=== PATIENT | male | born 1960 | race African-American/Black ===

== ENCOUNTER 2020-03-13 10:26 | Inpatient (IN) | payer MEDICARE, OTHER ==
[2020-03-13] MEDS ORDERED: levETIRAcetam IV 500 MG in SALINE 1 100ML.BAG IVPB STA (10:42)
[2020-03-13] MEDS ORDERED: LORazepam 2 MG/ML INJ IV STA (10:42)
[2020-03-13] MEDS ORDERED: SODIUM CHLORIDE 0.9% 1,000 ML IV STA (10:42)
[2020-03-13] MEDS ORDERED: levETIRAcetam IV 500 MG in SODIUM CHLORIDE 0.9% 100 ML IVPB STA (10:44)
--- NOTE | 2020-03-13 11:35 | ED ---
General Adult HPI - General Chief complaint: Seizure Stated complaint: Seizure Time Seen by Provider: 03/13/20 10:37 Source: patient, EMS, RN notes reviewed Mode of arrival: EMS Limitations: no limitations - History of Present Illness Initial comments: 59-year-old male with a past medical history of seizure disorder, chronic alcoholism presents to the emergency room for a chief complaint of seizure disorder. Patient has had 3 seizures today. Patient is post ictal currently. A and O 2. Patient does have a history of seizures and does take Keppra. Questionable whether he takes a second seizure medication. Patient is unsure what this medication is and his family does not know. We are unable to get a hold of the pharmacy and doctor as it is a holiday. No history of trauma today.Patient has no other complaints at this time including shortness of breath, chest pain, abdominal pain, nausea or vomiting, headache, or visual changes. - Related Data Home Medications Medication Instructions Recorded Confirmed Unknown Blood Pressure 1 tab PO DAILY 03/13/20 03/13/20 levETIRAcetam [Keppra] 750 mg PO BID 03/13/20 03/13/20 Allergies Allergy/AdvReac Type Severity Reaction Status Date / Time No Known Allergies Allergy Verified 03/13/20 10:57 Review of Systems ROS Statement: Those systems with pertinent positive or pertinent negative responses have been documented in the HPI. ROS Other: All systems not noted in ROS Statement are negative. Past Medical History Past Medical History: Seizure Disorder History of Any Multi-Drug Resistant Organisms: None Reported Additional Past Surgical History / Comment(s): CRAINUM SURICAL REPAIR Smoking Status: Current every day smoker Past Alcohol Use History: Abuse, Daily Past Drug Use History: Marijuana General Exam Limitations: no limitations General appearance: alert, in no apparent distress Head exam: Present: atraumatic, normocephalic, normal inspection Eye exam: Present: normal appearance, PERRL, EOMI. Absent: scleral icterus, conjunctival injection, periorbital swelling ENT exam: Present: normal exam, mucous membranes moist Neck exam: Present: normal inspection, full ROM. Absent: tenderness, meningismus, lymphadenopathy Respiratory exam: Present: normal lung sounds bilaterally. Absent: respiratory distress, wheezes, rales, rhonchi, stridor Cardiovascular Exam: Present: regular rate, normal rhythm, normal heart sounds. Absent: systolic murmur, diastolic murmur, rubs, gallop, clicks GI/Abdominal exam: Present: soft, normal bowel sounds. Absent: distended, tenderness, guarding, rebound, rigid Neurological exam: Present: alert, other Course Vital Signs 03/13/20 10:28 Temperature 97.7 F Pulse Rate 86 Respiratory 18 Rate Blood Pressure 102/84 O2 Sat by Pulse 97 Oximetry EKG Findings - EKG Comments: EKG Findings:: Normal sinus rhythm, ventricular rate 62, AK interval 156, QTc 448 Medical Decision Making - Medical Decision Making Vitals are stable. Patient apparently had 3 seizures prior to arrival. He was given Ativan and Keppra on arrival. Patient was post ictal. Patient's alcohol was found to be 310 and he was started on C1 protocol. CBC CMP unremarkable. Magnesium 2.1. Potassium is slightly hemolyzed. Patient did not have any additional seizures in the emergency room. At this time patient will be a dmitted for acute alcohol intoxication, possible DTs, uncontrolled seizures. Of note patient is on another unknown seizure medication which he has not been taking. Neurology will be consulted. - Lab Data Result diagrams: 03/13/20 11:45 03/13/20 11:45 Lab Results 03/13/20 03/13/20 Range/Units 11:45 11:45 WBC 7.6 (3.8-10.6) k/uL RBC 5.46 (4.30-5.90) m/uL Hgb 17.0 (13.0-17.5) gm/dL Hct 51.1 (39.0-53.0) % MCV 93.5 (80.0-100.0) fL MCH 31.0 (25.0-35.0) pg MCHC 33.2 (31.0-37.0) g/dL RDW 15.2 (11.5-15.5) % Plt Count 241 (150-450) k/uL MPV 6.4 Neutrophils % 68 % Lymphocytes % 22 % Monocytes % 6 % Eosinophils % 2 % Basophils % 1 % Neutrophils # 5.2 (1.3-7.7) k/uL Lymphocytes # 1.7 (1.0-4.8) k/uL Monocytes # 0.5 (0-1.0) k/uL Eosinophils # 0.1 (0-0.7) k/uL Basophils # 0.1 (0-0.2) k/uL Sodium 144 (137-145) mmol/L Potassium 5.2 H (3.5-5.1) mmol/L Chloride 111 H (98-107) mmol/L Carbon Dioxide 19 L (22-30) mmol/L Anion Gap 14 mmol/L BUN 10 (9-20) mg/dL Creatinine 0.88 (0.66-1.25) mg/dL Est GFR (CKD-EPI)AfAm >90 (>60 ml/min/1.73 sqM) Est GFR (CKD-EPI)NonAf >90 (>60 ml/min/1.73 sqM) Glucose 74 (74-99) mg/dL Calcium 8.7 (8.4-10.2) mg/dL Magnesium 2.1 (1.6-2.3) mg/dL Total Bilirubin 0.7 (0.2-1.3) mg/dL AST 54 (17-59) U/L ALT 28 (4-49) U/L Alkaline Phosphatase 79 (38-126) U/L Total Protein 7.7 (6.3-8.2) g/dL Albumin 4.3 (3.5-5.0) g/dL Serum Alcohol 310 H* mg/dL Disposition Clinical Impression: Intractable seizure disorder, Acute alcohol intoxication Disposition: ADMITTED IP TO THIS HOSP Is patient prescribed a controlled substance at d/c from ED?: No Referrals: None,Stated [Primary Care Provider] - 1-2 days Time of Disposition: 13:00
[2020-03-13 11:53] LABS: Basophils # (A) 0.1 k/uL (0-0.2); Basophils % (A) 1 %; Eosinophils # (A) 0.1 k/uL (0-0.7); Eosinophils % (A) 2 %; HCT 51.1 % (39.0-53.0); Lymphocytes # (A) 1.7 k/uL (1.0-4.8); Lymphocytes % (A) 22 %; MCHC 33.2 g/dL (31.0-37.0); MCV 93.5 fL (80.0-100.0); Mean Platelet Volume 6.4; Monocytes # (A) 0.5 k/uL (0-1.0); Monocytes % (A) 6 %; Neutrophils # (A) 5.2 k/uL (1.3-7.7); Neutrophils % (A) 68 %; Platelet Count 241 k/uL (150-450); RBC 5.46 m/uL (4.30-5.90); RDW 15.2 % (11.5-15.5); WBC 7.6 k/uL (3.8-10.6)
[2020-03-13 12:03] LABS: ALT 28 U/L (4-49); African American GFR (CKD) >90 (>60 ml/min/1.73 sqM); Albumin 4.3 g/dL (3.5-5.0); Anion Gap 14 mmol/L; Blood Urea Nitrogen 10 mg/dL (9-20); Calcium 8.7 mg/dL (8.4-10.2); Carbon Dioxide 19 mmol/L (22-30); Chloride 111 mmol/L (98-107); Glucose 74 mg/dL (74-99); Non-African American GFR(CKD) >90 (>60 ml/min/1.73 sqM); Sodium 144 mmol/L (137-145); Total Bilirubin 0.7 mg/dL (0.2-1.3); Total Protein 7.7 g/dL (6.3-8.2)
[2020-03-13 12:11] LABS: AST 54 U/L (17-59); Alcohol 310 mg/dL; Alkaline Phosphatase 79 U/L (38-126); Magnesium 2.1 mg/dL (1.6-2.3); Potassium 5.2 mmol/L (3.5-5.1)
[2020-03-13] MEDS ORDERED: LORazepam 2 MG/ML INJ IV PRN ×2 (12:26)
[2020-03-13] MEDS ORDERED: THIAMINE 100 MG/ML 2 ML VIAL IM STA (12:26)
[2020-03-13] MEDS ORDERED: NALOXONE 0.4 MG/ML 1 ML VIAL IV PRN (12:30)
[2020-03-13] MEDS: SODIUM CHLORIDE 0.9% 1,000 ML IV SCH ×2 (12:47→22:48)
--- NOTE | 2020-03-13 12:53 | CT ---
EXAMINATION TYPE: CT brain wo con DATE OF EXAM: 03/13/2020 COMPARISON: None available HISTORY: Seizure CT DLP: 1143.4 mGycm Automated exposure control for dose reduction was used. Helical imaging through the brain FINDINGS: There is focal encephalomalacia at the left parietal calvarium, craniotomy is present towards the con vexity and the overlying skull. Metallic densities are present at the level of the falx. There is no hemorrhage or hydrocephalus. Ex vacuo phenomenon is present of the posterior horn of the left lateral ventricle. Paranasal sinuses are well aerated, mastoid air cells are unremarkable. Orbits show symme tric appearance. Increased soft tissue density within the posterior scalp is noted of questionable ag e. Low-attenuation within the frontal lobes is noted, correlate for history of brain injury, contusio ns, soft tissue without densities suggesting calcifications are scattered within the scalp. IMPRESSION: NO ACUTE BRAIN ABNORMALITY IS EVIDENT. FINDINGS WITHIN THE SCALP MAY BE CHRONIC, COMPARISON WITH PRIO R IMAGING IS AVAILABLE MAY BE OF BENEFIT TO ASSESS FOR ANY INTERVAL CHANGES.
--- NOTE | 2020-03-13 17:24 | P.CNNES ---
History of Present Illness Consult date: 03/13/20 Requesting physician: Elia Hardin Reason for Consult: Uncontrolled seizures, seizure disorder History of Present Illness: Patient is a 59-year-old male came to the hospital today at 10:26 AM for recurrent seizure. Patient has history of seizure disorder, chronic alcoholism. Patient was post ictal on arrival. According to EMS flow sheet, when they arrived at the scene, patient was laying in bed. Family states he had 3 seizures within an hour. Each one lasted approximately less than a minute. Patient has history of seizure disorder. He has missed one of his medication. Patient was alert and oriented to self and time. But was still postictal. Patient's blood pressure at the scene was 133/95, pulse rate 89, respiration 12 saturation 97% and blood sugar 317. Vital signs on arrival blood pressure 102/84, pulse rate 86, temperature 97.7. CT head showed no acute brain abnormality is evident. There is focal encephalomalacia at the left parietal calvarium, craniotomy is present towards the convexity and the overlying scalp. Metallic densities are present at the level of [place]. There is no hemorrhage or hydrocephalus. Ex-vacuo phenomenon is present of the posterior horn of the left lateral ventricle. Low attenuation within the frontal lobe is noted, correlate for history of brain injury, cont usion, soft tissue without densities suggesting calcifications are scattered within the scalp. EKG shows normal sinus rhythm. Patient was given Ativan and Keppra in the ER. Patient's blood test shows normal CBC, sodium, potassium 5.2, normal liver and hepatic panel. Blood alcohol level 310. Patient tells me that he takes Keppra 1 pill twice a day and Dilantin 1 pill twice a day. He does not know the milligrams of each bills. Patient states that he has not had seizure for "a minute", which he probably refers to a long time. He states the last seizure was 6 months ago. He states that he has not been able to refill his medication therefore has missed medication for 4 days. Patient does take Keppra 750 mg twice a day as per electronic records here. Patient states he drinks 3-4 beers per day and a shot of vodka and flushes with water. He also smokes marijuana but denies any other drugs. Patient states that he follows up with a neurologist in [place]. Patient also tells me that he suffered from closed head injury about 5-7 years ago, when he was doing some yard work, climbed up the tree and then slid down, and fell head first. He required craniotomy. Past Medical History Past Medical History: Seizure Disorder History of Any Multi-Drug Resistant Organisms: None Reported Additional Past Surgical History / Comment(s): CRAINUM SURICAL REPAIR Smoking Status: Current every day smoker Past Alcohol Use History: Abuse, Daily Past Drug Use History: Marijuana - Past Family History Father History Unknown: Yes Medications and Allergies Home Medications Medication Instructions Recorded Confirmed Type Unknown Blood Pressure 1 tab PO DAILY 03/13/20 03/13/20 History levETIRAcetam [Keppra] 750 mg PO BID 03/13/20 03/13/20 History Allergies Allergy/AdvReac Type Severity Reaction Status Date / Time No Known Allergies Allergy Verified 03/13/20 10:57 Physical Examination - Vital Signs Vital Signs: Vital Signs Temp Pulse Resp BP Pulse Ox 03/13/20 12:56 63 18 108/68 100 03/13/20 10:28 97.7 F 86 18 102/84 97 Intake and Output 03/12/20 03/13/20 03/13/20 22:59 06:59 14:59 Other: Weight 74.843 kg On examination patient is a middle aged Afro[place]izen [place] male, in no acute distress. He has very slow mentation, prolonged latency time to answer questions, sometimes does not understand and requires repeated prompts. Likely from alcohol intoxication. Patient states it is February 2020 and that he is in [place] in [place]. He knows name of the current president Shruti, but does not recall name of the next president. Speech is clear with no dysarthria or aphasia. Slight slurring due to alcohol. Attention, concentration and fund of knowledge is limited. On cranial nerve exam. Pupils are round and reacting, visual godinez appears full. Extraocular muscles are intact. Face is symmetric and tongue protrudes the midline. Palatal elevation and sensation normal, hearing is sided decreased, shoulder shrug normal. Facial sensation normal. On muscle strength testing there is mild right pronator drift. The strength appea rs fairly normal in the arms and legs. He has some rotator cuff issues with ruptured right biceps tendon, it appears. Reflexes are 2+ in the left upper limb, 1 in the right upper limb. Patient has more brisk reflexes in the right lower limb about 3, and 2 on the left lower limb. Patient has sustained clonus on the right side. Sensory touch it appears slightly decreased on the right and patient neglects right side on double simultaneous stimulation. No obvious ataxia. Tone and bulk of muscles normal. Gait deferred. There is no obvious bruit, sinus audible, abdomen soft nontender, chest is clear. Peripheral pulses present. No peripheral edema. Results - Laboratory Findings CBC and BMP: 03/14/20 07:53 03/14/20 07:53 Abnormal Lab Findings: Abnormal Labs 03/13/20 11:45 Potassium 5.2 H Chloride 111 H Carbon Dioxide 19 L Serum Alcohol 310 H* Assessment and Plan Assessment: * Seizure disorder, came with breakthrough seizures. Patient probably ran out of his seizure medication and did not fill prescriptions for last 4 days. * History of closed head injury * Alcoholism, came with alcohol intoxication. * Marijuana use. Plan: * Resume patient's home medication. We will restart Keppra 750 mg twice a day. Patient states that he takes Dilantin as well. We will check Dilantin level. * We will try to obtain more collateral history from patient's family, including his medication list. * Watch for delirium tremens. [facility] protocol. * Thiamine, folate, multivitamin. * We will follow.
[2020-03-13] MEDS: THIAMINE 100 MG TAB PO SCH (17:49)
[2020-03-13] MEDS ORDERED: TEMAZEPAM 15 MG CAP PO PRN (18:11)
--- NOTE | 2020-03-13 19:37 | XR ---
EXAMINATION TYPE: XR chest 1V portable DATE OF EXAM: 03/13/2020 COMPARISON: NONE HISTORY: Chest pain TECHNIQUE: Single view FINDINGS: There is no heart failure nor confluent pneumonic infiltrate. There are emphysematous warner es in both lungs. Heart size is normal. There are chest leads. There is no pleural effusion. IMPRESSION: Pulmonary emphysema. No acute lung disease. Normal heart.
[2020-03-13] MEDS: HEPARIN SODIUM,PORCINE 5,000 UNIT/ML 1 ML VIAL SQ SCH (22:45)
[2020-03-14 01:23] LABS: Appearance,Urine Clear (Clear); Bacteria,Urine Many /hpf; Bilirubin,Urine Negative (Negative); Blood,Urine Negative (Negative); Color,Urine Yellow; Glucose,Urine (UA) Negative (Negative); Ketones,Urine Trace (Negative); Leukocyte Esterase,Urine Small (Negative); Mucus,Urine Rare /hpf; Nitrite,Urine Positive (Negative); PH, Urine 5.5 (5.0-8.0); Protein,Urine Negative (Negative); RBC,Urine 1 /hpf (0-5); Specific Gravity,Urine 1.021 (1.001-1.035); Squamous Epithelial Cell,Urine <1 /hpf (0-4); Urobilinogen,Urine <2.0 mg/dL (<2.0); WBC,Urine 9 /hpf (0-5)
[2020-03-14 01:31] LABS: Amphetamine Screen,Urine Not Detected (NotDetected); Barbiturate Screen,Urine Not Detected (NotDetected); Benzodiazepines Screen,Urine Detected (NotDetected); Cocaine Screen,Urine Not Detected (NotDetected); Methadone Screen, Urine Not Detected (NotDetected); Opiate Screen,Urine Not Detected (NotDetected); Oxycodone Screen, Urine Not Detected (NotDetected); Phencyclidine Screen,Urine Not Detected (NotDetected); Tricyclic Antidepressant,Urine Not Detected (NotDetected); Urn Cannabinoid Scrn Not Detected (NotDetected)
[2020-03-14] MEDS: THIAMINE 100 MG TAB PO SCH ×2 (06:37→16:27)
[2020-03-14] MEDS: PANTOPRAZOLE 40 MG TABLET PO SCH (06:37)
[2020-03-14 08:09] LABS: Basophils % (A) 0 %; Eosinophils # (A) 0.1 k/uL (0-0.7); Eosinophils % (A) 1 %; HCT 44.9 % (39.0-53.0); HGB 14.8 gm/dL (13.0-17.5); Lymphocytes # (A) 1.1 k/uL (1.0-4.8); Lymphocytes % (A) 14 %; MCH 30.8 pg (25.0-35.0); MCV 93.2 fL (80.0-100.0); Mean Platelet Volume 7.1; Monocytes # (A) 0.6 k/uL (0-1.0); Monocytes % (A) 7 %; Neutrophils # (A) 5.8 k/uL (1.3-7.7); Neutrophils % (A) 76 %; Platelet Count 229 k/uL (150-450); RBC 4.82 m/uL (4.30-5.90); RDW 15.1 % (11.5-15.5); WBC 7.7 k/uL (3.8-10.6)
[2020-03-14 08:24] LABS: African American GFR (CKD) >90 (>60 ml/min/1.73 sqM); Anion Gap 4 mmol/L; Blood Urea Nitrogen 13 mg/dL (9-20); Calcium 9.1 mg/dL (8.4-10.2); Carbon Dioxide 26 mmol/L (22-30); Chloride 106 mmol/L (98-107); Glucose 88 mg/dL (74-99); Non-African American GFR(CKD) 88 (>60 ml/min/1.73 sqM); Potassium 4.4 mmol/L (3.5-5.1); Sodium 136 mmol/L (137-145)
[2020-03-14] MEDS: NICOTINE 14MG/24HR PATCH TRANSDERM SCH (09:23)
[2020-03-14] MEDS: LORazepam 2 MG/ML INJ IV PRN ×3 (09:23→21:31)
[2020-03-14] MEDS: HEPARIN SODIUM,PORCINE 5,000 UNIT/ML 1 ML VIAL SQ SCH ×2 (09:24→21:31)
[2020-03-14] MEDS: SODIUM CHLORIDE 0.9% 1,000 ML IV SCH ×2 (09:24→15:33)
[2020-03-14] MEDS: MULTIVITAMINS, THERA 1 EACH TAB PO SCH (11:26)
[2020-03-14] MEDS: FOLIC ACID 1 MG TAB PO SCH (11:26)
[2020-03-14] MEDS ORDERED: HYDROcodone/APAP 5-325MG 1 EACH TAB PO PRN (12:33)
--- NOTE | 2020-03-14 13:12 | P.PN ---
Subjective Progress Note Date: 03/14/20 No further seizures reported. Patient laying in the bed comfortable. Offers no complaints. Please see examination section for details. Objective - Vital Signs Vital signs: Vital Signs Temp 98.2 F 03/14/20 11:22 Pulse 104 H 03/14/20 11:22 Resp 16 03/14/20 11:22 BP 143/78 03/14/20 11:22 Pulse Ox 97 03/14/20 11:22 Intake & Output 03/13/20 03/14/20 03/14/20 18:59 06:59 18:59 Output Total 400 Balance -400 Weight 74.843 kg 73 kg Output: Urine 400 Other: # Voids 0 - Exam Patient is alert and awake. In no distress. Patient has better mentation, and latency time to answer questions. Speech and language functions are normal. Patient's pupils are round and reactive to light, visual godinez appears full, although patient was giving inconsistent response. On muscle strength testing patient has right pronation. The assistant editor is equal, right deltoid week. Patient's right hip flexion also weak. Ankles are normal. Reflexes are brisk in the right lower extremity. Sensations appears to be decreased in the right side of the body. Patient still does not remember details about his seizure medications. When I asked if he takes Keppra, states "yes", when asked if he takes Dilantin, he states "yes". However he does not know the dose of his medication. I called patient's personal banking officer Stephenie, who is just his friend, states that patient is an alcoholic. He drinks all the time. Patient has a sister but she does not want to take care of him. Patient also has a girlfriend, but she also would not like to take care of him because he keeps on drinking and falling. She is recommending patient to be placed in a facility. She does not know the dose of her seizure medications or even what he is taking. Patient states that he goes to [facility], where we tried to call you numerous times and no one will become the phone. Patient's friend Stephenie says that he goes to [facility], which is none, rather a [facility]. She does not know any history about patient's previous history of closed head injury. - Labs CBC & Chem 7: 03/14/20 07:53 03/14/20 07:53 Labs: Abnormal Lab Results - Last 24 Hours (Table) 03/14/20 03/14/20 Range/Units 01:12 07:53 Sodium 136 L (137-145) mmol/L Urine Ketones Trace H (Negative) Ur Leukocyte Esterase Small H (Negative) Urine WBC 9 H (0-5) /hpf Urine Bacteria Many H (None) /hpf Urine Mucus Rare H (None) /hpf U Benzodiazepines Scrn Detected H (NotDetected) Assessment and Plan Assessment: * Seizure disorder, came with breakthrough seizures. Patient probably ran out of his seizure medication and did not fill prescriptions for last 4 days. * History of closed head injury * Alcoholism, came with alcohol intoxication. * Marijuana use. Plan: * Resume patient's home medication. Continue Keppra 750 mg twice a day. Patient states that he takes Dilantin as well. Dilantin level <3.0. We tried to contact patient's caregiver as well as pharmacy, not able to obtain details about his seizure medication. Patient's friend will try to get hold of his pharmacy and let us know the dose. In the meantime he will stay on Keppra. * Watch for delirium tremens. [place] protocol. * Thiamine, folate, multivitamin. * Neurology service not available over the weekend. Please perfect serve if any concerns over the weekend. Dr Stalin Farfan will resume neurology service on Tuesday.
--- NOTE | 2020-03-14 14:36 | HP ---
HISTORY AND PHYSICAL CHIEF COMPLAINT: Seizure disorder. HISTORY OF PRESENT ILLNESS: This 59-year-old gentleman with a past medical history of seizure disorder, history of repair, history of alcohol abuse, history of nicotine dependence, history of THC, being followed by a primary physician apparently in the [place] area, was taking Keppra previously. The patient apparently ran out of the medications. The patient was visiting friends in [place] and the patient apparently drank a large amount of alcohol. Patient suffered 3 seizures and was [facility] to [facility]. Currently the patient is given Ativan. Patient is barely responsive, unable to give a coherent history. Most of the history is taken from my discussion with staff as well as also discussion with the ER physician and review of the chart. Laboratory values showed potassium 5.2, CO2 is 19. Alcohol level was found to be 310, indicating acute alcohol intoxication. CT scan of the brain showed no acute abnormality. There is no history of any fever, rigor or chills at this time. PAST MEDICAL HISTORY: Per chart, seizure disorder, craniosacral repair and closed-head injury, history of nicotine dependence, polysubstance abuse. MEDICATIONS: Medications prior to admission include blood pressure medication and Keppra. ALLERGIES: NONE. FAMILY HISTORY: Unavailable. SOCIAL HISTORY: History of polysubstance abuse, as mentioned. REVIEW OF SYSTEMS: Review of systems could not be taken because of the patient's change in mental status. PHYSICAL EXAMINATION: Patient is stuporous, barely arousable. Pulse 86, blood pressure 102/84, respiration 18, temperature 97.7, pulse ox 97% on room air. HEENT: Conjunctivae normal. NECK: No jugular venous distention. CARDIOVASCULAR SYSTEM: S1, S2 muffled. RESPIRATORY SYSTEM: Breath sounds diminished at the bases. A few scattered rhonchi and crackles. ABDOMEN: Soft, non-tender. No mass palpable. LEGS: No edema. No swelling. NERVOUS SYSTEM: Higher functions as mentioned earlier. Moves all 4 limbs. No focal motor or sensory deficit. Nervous system could not be examined fully. LYMPHATICS: No lymph node palpable in neck, axillae or groin. SKIN: No ulcer, rash, bleeding. JOINTS: No active deforming arthropathy. SKIN: No rash joints no active deforming arthropathy. LABS: CBC within normal limits. Potassium 5.2. CO2 is 19. Alcohol noted. ASSESSMENT: 1. Acute seizure disorder, possibly breakthrough seizures with noncompliance. 2. acute alcohol intoxication. 3. Change in mental status, metabolic encephalopathy, multifactorial with postictal state as well. 4. Hyperkalemia. 5. Decreased carbon dioxide. 6. History of seizure disorder. 7. History of craniosacral repair. 8. History of nicotine dependence. 9. History of polysubstance abuse. 10.History of ETOH. 11.History of tetrahydrocannabinol. 12.FULL CODE. RECOMMENDATIONS AND DISCUSSION: In this 59-year-old gentleman who presented with multiple complex medical issues, we will monitor the patient closely, continue the current medications, continue symptomatic treatment. Patient was started on Keppra IV. Neurology consultation. Keppra 750 p.o. b.i.d. was started. I would also observe CIWA protocol. Otherwise, conservative line of treatment. Symptomatic treatment. Prognosis guarded because of multiple complex medical issues. Further recommendations to follow. MMALEXANDER / CLARISAN: [id number] / BEN
[2020-03-14] MEDS ORDERED: PHENYTOIN SODIUM INJ 1,000 MG in SODIUM CHLORIDE 0.9% 100 ML IVPB STA (15:08)
[2020-03-14] MEDS: PHENYTOIN SODIUM EXTENDED 100 MG CAP PO SCH ×2 (16:27→21:31)
--- NOTE | 2020-03-14 18:42 | PN ---
PROGRESS NOTE DATE OF SERVICE: 03/14/2020 INTERVAL HISTORY: This is a 59-year-old gentleman admitted with acute seizure disorder, acute alcohol intoxication, being closely monitored at this time. Neurology has seen the patient and recommended to initiate Dilantin 1 g IV bolus followed by 100 mg 3 times daily and Dilantin levels are also being checked by Neurology. No chest pain. No palpitations. No fever. PHYSICAL EXAMINATION: GENERAL: Patient is alert and oriented times two. VITAL SIGNS: Pulse 95, blood pressure 146/72, respirations 22, temperature 98.3, pulse ox 97% on room air. HEENT: Conjunctivae normal. NECK: No jugular venous distention. RESPIRATORY: Breath sounds diminished at the bases. No rhonchi, no crackles. HEART: S1 and S2, muffled. ABDOMEN: Soft, no tenderness. No masses palpable. EXTREMITIES: No edema, no swelling. NERVOUS: No focal deficits. LABS: CBC within normal limits. Sodium 136, otherwise other labs are noted. ASSESSMENT: 1. Acute seizure disorder with possible breakthrough seizures with noncompliance. 2. Acute alcohol intoxication. 3. Change in mental status acute metabolic encephalopathy, multifactorial with postictal state as well, present on admission. 4. Hyperkalemia. 5. Decreased CO2. 6. History of seizure disorder. 7. History of craniosacral repair. 8. History of nicotine dependence. 9. History of polysubstance abuse. 10.History EtOH. 11.History of THC. 12.FULL CODE. RECOMMENDATIONS AND DISCUSSION: Recommend to continue current management and symptomatic treatment. Otherwise, at this time continue with Dilantin as recommended by Neurology. Check the levels. Continue the rest of the medications. aboriginal education worker coordinator follow for alcohol rehab arrangements. Further recommendations to follow. MMODL / IJN: [id number] /
[2020-03-15] MEDS: SODIUM CHLORIDE 0.9% 1,000 ML IV SCH ×3 (05:35→21:43)
[2020-03-15] MEDS: THIAMINE 100 MG TAB PO SCH ×2 (06:24→16:51)
[2020-03-15] MEDS: PANTOPRAZOLE 40 MG TABLET PO SCH (06:24)
[2020-03-15 07:28] LABS: African American GFR (CKD) >90 (>60 ml/min/1.73 sqM); Anion Gap 4 mmol/L; Blood Urea Nitrogen 9 mg/dL (9-20); Calcium 9.1 mg/dL (8.4-10.2); Carbon Dioxide 25 mmol/L (22-30); Chloride 106 mmol/L (98-107); Glucose 89 mg/dL (74-99); Non-African American GFR(CKD) >90 (>60 ml/min/1.73 sqM); Phenytoin (Dilantin) 14.9 ug/mL; Potassium 4.1 mmol/L (3.5-5.1); Sodium 135 mmol/L (137-145)
[2020-03-15 07:31] LABS: Basophils % (A) 1 %; Eosinophils # (A) 0.2 k/uL (0-0.7); Eosinophils % (A) 4 %; HCT 46.7 % (39.0-53.0); HGB 14.4 gm/dL (13.0-17.5); Hypochromasia Marked; Lymphocytes # (A) 1.2 k/uL (1.0-4.8); Lymphocytes % (A) 23 %; MCH 31.1 pg (25.0-35.0); MCHC 30.7 g/dL (31.0-37.0); Macrocytosis Slight; Mean Platelet Volume 7.9; Monocytes # (A) 0.5 k/uL (0-1.0); Monocytes % (A) 9 %; Neutrophils # (A) 3.2 k/uL (1.3-7.7); Neutrophils % (A) 62 %; Platelet Count 202 k/uL (150-450); RBC 4.62 m/uL (4.30-5.90); RDW 15.1 % (11.5-15.5); WBC 5.2 k/uL (3.8-10.6)
[2020-03-15] MEDS: PHENYTOIN SODIUM EXTENDED 100 MG CAP PO SCH ×3 (08:03→21:36)
[2020-03-15] MEDS: HEPARIN SODIUM,PORCINE 5,000 UNIT/ML 1 ML VIAL SQ SCH ×2 (08:04→21:37)
[2020-03-15] MEDS: NICOTINE 14MG/24HR PATCH TRANSDERM SCH (08:17)
[2020-03-15] MEDS: FOLIC ACID 1 MG TAB PO SCH (11:40)
[2020-03-15] MEDS: MULTIVITAMINS, THERA 1 EACH TAB PO SCH (11:40)
--- NOTE | 2020-03-15 15:13 | PN ---
PROGRESS NOTE DATE OF SERVICE: 03/15/2020 This 59-year-old gentleman who was admitted with acute seizure disorder with possible breakthrough seizures also had a history of noncompliance also. No chest pain. No palpitations. Patient apparently kicked out from his girlfriend's house and was living a niece who is an alcoholic, according to the power of employment law attorney. The patient has no place to go. The patient continues to be confused and weak also. PAST MEDICAL HISTORY: Reviewed. REVIEW OF SYSTEMS: Could not be taken, the patient is confused. CURRENT MEDICATIONS: Reviewed and include: Fisher, folic acid, Keppra, Narcan, Protonix, Restoril, vitamin B1. Medications reviewed. PHYSICAL EXAM: Patient is alert, oriented x2. Pulse 91, blood pressure 106/64, respiration 18, temperature 97.9, pulse ox 98% on room air. HEENT is conjunctivae normal. NECK: No JVD. CARDIOVASCULAR: S1, S2 muffled. RESPIRATORY SYSTEM: Breath sounds diminished at the bases. No rhonchi. No crackles. ABDOMEN: Soft, nontender. LEGS are no edema. No swelling. NERVOUS SYSTEM: No focal deficits. LABS: MCV 101, sodium is 135. UA noted. The serum alcohol is 310. The CT brain showed no acute abnormality. ASSESSMENT: 1. Acute seizure disorder with possible breakthrough seizures with noncompliance. 2. Acute alcohol intoxication. 3. Change in mental status, acute metabolic encephalopathy multifactorial with postictal state as well as present on admission secondary to alcohol, present on admission. 4. Hyperkalemia. 5. Gait dysfunction and generalized weakness. 6. Decreased CO2. 7. History of seizure disorder. 8. History of craniosacral repair. 9. History of nicotine dependence. 10.History of polysubstance abuse. 11.History of ETOH. 12.History of THC. 13.FULL CODE. RECOMMENDATIONS AND DISCUSSION: Continue current management and treatment. Continue with antiseizure medications. PT/OT evaluation, possible ECF rehab. [employer] to evaluate for the home situation. Phenytoin level was 14.9 at this time, which is improving. Continue with Keppra and combination. Continue the vitamin supplements. Smoking/alcohol cessation recommendations. Guarded prognosis because of multiple complex medical. Further recommendations to follow. MMODL / IJN: [id number] /
[2020-03-16 04:38] LABS: Basophils % (A) 0 %; Eosinophils # (A) 0.3 k/uL (0-0.7); Eosinophils % (A) 4 %; HGB 14.2 gm/dL (13.0-17.5); Lymphocytes # (A) 1.8 k/uL (1.0-4.8); Lymphocytes % (A) 28 %; MCH 29.9 pg (25.0-35.0); MCHC 31.5 g/dL (31.0-37.0); Mean Platelet Volume 7.8; Monocytes # (A) 0.5 k/uL (0-1.0); Monocytes % (A) 8 %; Neutrophils # (A) 3.6 k/uL (1.3-7.7); Neutrophils % (A) 57 %; Platelet Count 194 k/uL (150-450); RBC 4.75 m/uL (4.30-5.90); RDW 15.1 % (11.5-15.5); WBC 6.3 k/uL (3.8-10.6)
[2020-03-16 04:39] LABS: MCV 94.8 fL (80.0-100.0)
[2020-03-16 06:38] VITALS: RESP 18
[2020-03-16] MEDS: SODIUM CHLORIDE 0.9% 1,000 ML IV SCH ×2 (09:09→21:25)
[2020-03-16] MEDS: FOLIC ACID 1 MG TAB PO SCH (09:10)
[2020-03-16] MEDS: MULTIVITAMINS, THERA 1 EACH TAB PO SCH (09:10)
[2020-03-16] MEDS: NICOTINE 14MG/24HR PATCH TRANSDERM SCH (09:10)
[2020-03-16] MEDS: HEPARIN SODIUM,PORCINE 5,000 UNIT/ML 1 ML VIAL SQ SCH ×2 (09:10→22:02)
[2020-03-16] MEDS: THIAMINE 100 MG TAB PO SCH ×2 (09:10→17:23)
[2020-03-16] MEDS: PANTOPRAZOLE 40 MG TABLET PO SCH (09:10)
[2020-03-16] MEDS: PHENYTOIN SODIUM EXTENDED 100 MG CAP PO SCH ×3 (09:58→22:02)
[2020-03-16 10:00] LABS: African American GFR (CKD) 114.9 (60.0-200.0); Anion Gap 7.1 mmol/L (4.00-12.00); BUN/Creat Ratio 8.75 Ratio (12.00-20.00); Calcium 8.8 mg/dL (8.7-10.3); Carbon Dioxide 24.9 mmol/L (21.6-31.8); Non-African American GFR(CKD) 99.2 (60.0-200.0); Potassium 3.9 mmol/L (3.5-5.5)
--- NOTE | 2020-03-16 14:53 | DS ---
DISCHARGE SUMMARY DATE OF SERVICE: 03/16/2020 FINAL DIAGNOSES: 1. Acute seizure disorder with possible breakthrough seizures and noncompliance. 2. Acute alcohol intoxication. 3. Change in mental status, acute metabolic encephalopathy multifactorial with postictal state as well as present on admission secondary to alcohol. 4. Hyperkalemia. 5. Gait dysfunction and generalized weakness. 6. Decreased CO2. 7. History of seizure disorder. 8. History of craniosacral repair. 9. History of nicotine dependence. 10.History of polysubstance abuse. 11.History of ETOH. 12.History of THC. 13.FULL CODE. DISCHARGE DISPOSITION: The patient is discharged in stable condition with a guarded prognosis. HISTORY OF PRESENT ILLNESS: This 59-year-old gentleman with a past medical history of multiple medical problems including acute seizure disorder, possibly breakthrough seizures, treated symptomatic. Neurology saw the patient. The family is coming and wanted the patient discharged so that they can take him with him. Otherwise also recommend close followup with primary physician. PHYSICAL EXAMINATION: On exam vitals stable. Cardiovascular system S1 and S2. Abdomen is soft. Nervous system: No focal deficits. DISCHARGE INSTRUCTIONS: 1. Diet is cardiac. 2. Activity limited until followup. 3. Follow up with Dr. De León in 1-2 days. 4. Follow up with Neurology as recommended. DISCHARGE MEDICATIONS: 1. Dilantin 100 mg p.o. t.i.d. 2. Folic acid 1 mg daily. 3. Keppra 750 mg p.o. b.i.d. 4. Multivitamins 1 p.o. daily. 5. Thiamine 100 mg p.o. daily. 6. No alcohol. Threatened AMA. MMODL / IJN: [id number] /
[2020-03-17 05:06] VITALS: BP 118/82; PULSE 78; TEMP 98.3
[2020-03-17] MEDS: SODIUM CHLORIDE 0.9% 1,000 ML IV SCH (06:02)
[2020-03-17] MEDS: PANTOPRAZOLE 40 MG TABLET PO SCH (09:20)
[2020-03-17] MEDS: HEPARIN SODIUM,PORCINE 5,000 UNIT/ML 1 ML VIAL SQ SCH (09:20)
[2020-03-17] MEDS: FOLIC ACID 1 MG TAB PO SCH (09:20)
[2020-03-17] MEDS: THIAMINE 100 MG TAB PO SCH (09:20)
[2020-03-17] MEDS: MULTIVITAMINS, THERA 1 EACH TAB PO SCH (09:20)
[2020-03-17] MEDS: NICOTINE 14MG/24HR PATCH TRANSDERM SCH (09:21)
[2020-03-17] MEDS: PHENYTOIN SODIUM EXTENDED 100 MG CAP PO SCH (09:22)
--- NOTE | 2020-03-17 12:03 | PN ---
PROGRESS NOTE DATE OF SERVICE: 03/16/2020 This 59-year-old gentleman admitted with acute seizure disorder also acute alcohol intoxication. The patient closely monitored. The family is actually trying to get the patient in rehab at this time. No chest pain, no palpitation. PHYSICAL EXAMINATION: Alert and oriented x2. The pulse is 73, blood pressure is 136/86, respiration 18, temperature 98.2, pulse ox 100% on room air. HEENT: Conjunctivae normal. NECK: No jugular venous distention. CARDIOVASCULAR: S1, S2 muffled. RESPIRATORY: Breath sounds diminished at the bases. No rhonchi, no crackles. ABDOMEN: Soft. NERVOUS SYSTEM: Mild diffuse weakness. LABS: Labs are reviewed. ASSESSMENT: 1. Acute seizure disorder with possible breakthrough seizures and noncompliance. 2. Acute alcohol intoxication. 3. Change in mental status, acute metabolic encephalopathy. 4. Hyperkalemia. 5. Gait dysfunction. 6. History of seizure disorder. 7. History of repair. 8. History of nicotine dependence. 9. History of polysubstance abuse. 10.History of EtOH. 11.FULL CODE. RECOMMENDATIONS AND DISCUSSION: In this 59-year-old gentleman who presented with multiple complex medical issues, I would recommend to continue the current medications, continue symptomatic treatment. Otherwise at this time I recommend continue with antiseizure medications, Dilantin level has been checked. Follow up closely with Neurology, rehab and closely follow with primary physician. Prognosis guarded. Further recommendations to follow. MMODL / IJN: [id number] /
--- NOTE | 2020-03-17 14:35 | P.DS ---
Providers Date of admission: 03/13/20 12:30 Expected date of discharge: 03/17/20 Attending physician: Salomon Hatch Consults: 03/13/20 12:31 Consult Physician Routine Consulting Provider: Abby Mott Consult Reason/Comments: uncontrolled seizures, seizure disorder Do you want consulting provider notified?: Yes Primary care physician: Stated None Hospital Course: Discharge summary addendum from 03/16/2020 Final diagnosis Acute seizure disorder with possible breakthrough seizures and noncompliance Acute alcohol intoxication Change in mental status, acute metabolic encephalopathy multifactorial with postictal state as well as present on admission secondary to alcohol Hyperkalemia Gait dysfunction and generalized weakness Decreased CO2 History of seizure disorder History of craniosacral repair history of nicotine dependence History of polysubstance abuse history of EtOH history of THC Full code Discharge disposition Patient is discharged in a stable condition with guarded prognosis and family will be bringing the patient to rehab. History of present illness This is a 59-year-old male with a past medical history of multiple medical chronic problems including acute seizure disorder, possibly breakthrough seizures, treated symptomatically. Neurology evaluated the patient during hospitalization. Patient's family are coming to take the patient to rehab although never showed up in the number that was provided was not in service. Multiple other family members called today and on their way to pick him up and they live in [place]. Family will be transporting the patient to rehab. Recommend to avoid alcohol intake continue with rehab and follow-up with primary care provider once discharged. Physical examination On exam vital signs are stable. Cardiovascular S1, S2. Abdomen is soft and nontender. Nervous system shows no focal deficits. Discharge instructions Continue with cardiac diet Activity Limited until follow-up Follow-up with Dr. De León in 1-2 days Follow-up with neurology in the outpatient setting is recommended Patient taking family to rehab Avoid alcohol intake Discharge medications Dilantin 100 mg by mouth 3 times daily Folic acid 1 mg daily Keppra 750 mg by mouth twice daily Multivitamins once daily Thiamine 100 mg once daily Patient Condition at Discharge: Good Plan - Discharge Summary Discharge Rx Participant: Yes New Discharge Prescriptions: New Phenytoin Sodium Extended [Dilantin] 100 mg PO TID #90 cap Folic Acid 1 mg PO DAILY@1200 #30 tab Multivitamins, Thera [Multivitamin (formulary)] 1 each PO DAILY@1200 #30 tab Thiamine [Vitamin B-1] 100 mg PO BID-W/MEALS #30 tab Continue levETIRAcetam [Keppra] 750 mg PO BID #60 tab Discontinued Unknown Blood Pressure 1 tab PO DAILY Discharge Medication List Folic Acid 1 mg PO DAILY@1200 #30 tab 03/15/20 [Rx] Multivitamins, Thera [Multivitamin (formulary)] 1 each PO DAILY@1200 #30 tab 03/15/20 [Rx] Phenytoin Sodium Extended [Dilantin] 100 mg PO TID #90 cap 03/15/20 [Rx] Thiamine [Vitamin B-1] 100 mg PO BID-W/MEALS #30 tab 03/15/20 [Rx] levETIRAcetam [Keppra] 750 mg PO BID #60 tab 03/15/20 [Rx] Follow up Appointment(s)/Referral(s): Bunny De León MD [REFERRING] - 3 Days Ambulatory/Diagnostic Orders: Complete Blood Count w/diff [LAB.AMB] Location: None Selected Patient Instructions/Handouts: Heart Healthy Diet (DC), Nonepileptic Seizures (DC), Alcohol Intoxication (DC), Abuse of Alcohol (DC), At-Risk Alcohol Use (DC), Alcohol Withdrawal (DC), Recurrent Seizures in Adults (DC), Alcohol Dependence (DC) Activity/Diet/Wound Care/Special Instructions: Diet cardiac Activity Limited until follow up No driving for 6 months No EtOH Attend AA meetings Follow-up with the Dr. Shelton in 1-2 weeks Discharge Disposition: DC/TRNS TO INPATIENT REHAB FAC
== END 2020-03-17 12:16 | DRG 100 ==
LOC: EC 10:26 → 3SCARD 12:30 → 6NMEDSUR 03-15 20:37
PROVIDERS: ADMIT Hospitalist; ATTEND Hospitalist
DX: G40.919 Epilepsy, unspecified, intractable, without status epilepticus (principal); G93.41 Metabolic encephalopathy; E87.5 Hyperkalemia; F10.229 Alcohol dependence with intoxication, unspecified; Y90.8 Blood alcohol level of 240 mg/100 ml or more; F19.10 Other psychoactive substance abuse, uncomplicated; F17.210 Nicotine dependence, cigarettes, uncomplicated; Z79.899 Other long term (current) drug therapy; Z91.19 Patient's noncompliance with other medical treatment and regimen; Z87.820 Personal history of traumatic brain injury; R26.9 Unspecified abnormalities of gait and mobility; R53.1 Weakness
CPT/HCPCS: 36415; 70450; 71045; 80048; 80053; 80177; 80185; 80306; 80320; 81001; 83735; 85025; 93005; 96365; 96372; 96375; 99285